=== PATIENT | female | born 1995 | race African-American/Black ===

== ENCOUNTER 2018-12-30 22:12 | Emergency (ER) | payer SELFPAY ==
[2018-12-31 00:36] LABS: #Lymphocytes 0.6 thou/uL (1.20-3.40); #Monocytes 0.3 thou/uL (0.11-0.59); #Neutrophils 15.4 thou/uL (1.40-6.50); %Basophils 0.1 % (0.0-1.0); %Eosinophils 0.1 % (0.0-10.0); %Lymphocytes 3.8 % (21.0-51.0); %Monocytes 1.7 % (0.0-10.0); %Neutrophils 94.3 % (42.0-75.0); Mean Corpuscular HGB CONC 33.9 g/dL (32.0-36.0); Mean Corpuscular Hemoglobin 32.3 pg (27.0-31.0); Mean Corpuscular Volume 95.2 fL (78.0-98.0); Mean Platelet Volume 7.9 fL (7.4-10.4); Platelet Count 228 thou/uL (130-400); RBC Distribution Width 12.1 % (11.5-14.5); Red Blood Cell (RBC) Count 4.02 mill/uL (4.20-5.40); White Blood Cell (WBC) Count 16.4 thou/uL (4.8-10.8)
[2018-12-31 00:57] LABS: ALT (SGPT) 13 U/L (8-55); AST (SGOT) 22 U/L (5-34); Albumin 3.9 g/dL (3.5-5.0); Alkaline Phosphatase 60 U/L (40-150); Anion Gap 14 mmol/L (10-20); BUN (Urea Nitrogen) 11 mg/dL (7.0-18.7); Bilirubin, Total 0.5 mg/dL (0.2-1.2); Calc. Creatinine Clearance 0 mL/min (70-130); Carbon Dioxide 17 mmol/L (22-29); Chloride 110 mmol/L (98-107); Estimated GFR-MDRD Greater than 90; Globulin 2.7 g/dL (2.4-3.5); Glucose 141 mg/dL (70-105); Potassium 3.4 mmol/L (3.5-5.1); Protein, Total 6.6 g/dL (6.0-8.3); Sodium 138 mmol/L (136-145)
[2018-12-31] MEDS ORDERED: Ondansetron PF 4 MG/2 ML Vial ONE (01:09)
[2018-12-31] MEDS ORDERED: Morphine 4 MG/ML VIAL ONE (02:00)
[2018-12-31] MEDS ORDERED: Ketorolac Tromethamine 30 MG/ML VIAL ONE (02:00)
[2018-12-31 03:12] LABS: Pregnancy Test - Urine (BHCG) Negative (Negative); Pregu Control Background? CLEAR/WHITE (CLR/WHITE); Pregu Control Bar Appear? YES (CONTROL BAR); Specific Gravity 1.026 (1.002-1.036)
[2018-12-31 03:13] LABS: Bilirubin Negative (Negative); Blood, Urine Moderate (Negative); Clarity CLOUDY (Clear); Glucose, Urine (Dipstick) 100 mg/dL (Negative); Leukocyte Negative (Negative); Nitrite Negative (Negative); Protein, Urine (Dipstick) 100 mg/dL (Neg-Trace); Specific Gravity, Urine 1.026 (1.002-1.036); pH, Urine 7.5 (5.0-9.0)
[2018-12-31 03:15] LABS: Bacteria/HPF 1+ HPF (None Seen); Pathc Cast-AUWi Flag 1.63 (0-2.49); RBC/HPF 0-3 HPF (0-3); Squamous Epithelial 0-3 HPF (0-3); WBC/HPF 21-50 HPF (0-3)
[2018-12-31 03:33] LABS: Hyaline Casts/LPF 0-3 HYALINE CAST LPF (0-3 Hyaline)
--- NOTE | 2018-12-31 07:09 | ULT ---
ULTRASOUND PELVIS WITH DOPPLER COLORFLOW IMAGING: TRANSABDOMINAL IMAGING PERFORMED: INDICATIONS: Pelvic pain. Clinical concern for torsion of the ovaries. FINDINGS: The uterus is of normal volume, although the endometrium is not reliably depicted on the basis of thi s exam. Doppler evaluation is performed, which reveals flow to each ovary. Dominant cyst of the lef t ovary measures slightly greater than 2 cm. No free pelvic fluid. Within the partially distended u rinary bladder, there are low level echoes that may relate to debris. IMPRESSION: 1. Doppler flow is elicited to each ovary with vascular waveforms. 2. No free pelvic fluid. 3. Incomplete visualization of the endometrium for comment. POS: [facility]
--- NOTE | 2018-12-31 09:09 | CT ---
PRELIMINARY REPORT/[facility]/EMERGENTY AFTER-HOURS PROCEDURE CT Abdomen and Pelvis With Contrast EXAM DATE/TIME: 12/31/2018 2:47 AM CLINICAL HISTORY: 23 years old, female; Pain; Abdominal pain; Localized; Lower; Patient HX: [id number] presents to ed C/O n/v/ d, onset last night. PT reports one episode of diarrhea and about 7-8 episodes of vomiting. PT also r eports fever of 100.6 and lower abdominal pain. PT reports sick contacts at home. TECHNIQUE: Imaging protocol: Axial computed tomography images of the abdomen and pelvis with intravenous contras t. Coronal reformatted images were created and reviewed. COMPARISON: No relevant prior studies available. FINDINGS: Lower thorax: No acute findings. ABDOMEN: Liver: Normal. No mass. Gallbladder and bile ducts: Normal. No calcified stones. No ductal dilation. Pancreas: Normal. No ductal dilation. Spleen: Normal. No splenomegaly. Adrenals: Normal. No mass. Kidneys and ureters: Subcentimeter low-attenuation lesion in the left kidney is too small to further characterize on this 5 mm slice thickness study, most likely a cyst. Kidneys are otherwise unremarkab le. Stomach and bowel: No bowel wall thickening or intestinal obstruction. Appendix: Normal appendix. PELVIS: Bladder: Unremarkable as visualized. Reproductive: 1.9 cm dominant follicle/cyst of the left ovary. ABDOMEN and PELVIS: Intraperitoneal space: Physiologic amount of free fluid in the pelvis. Bones/joints: No acute fracture. No dislocation. Soft tissues: Unremarkable. Vasculature: Normal. No abdominal aortic aneurysm. Lymph nodes: Normal. No enlarged lymph nodes. IMPRESSION: 1.9 cm dominant follicle/cyst of the left ovary. Thank you for allowing us to participate in the care of your patient. Dictated and Authenticated by: Amos Smart MD 12/31/2018 4:00 AM Central Time ([place] & [place]) FINAL REPORT EMERGENCY AFTER HOURS CT ABDOMEN AND PELVIS WITH CONTRAST: Date: 12/31/18 FINDINGS/IMPRESSION: I agree with the findings and impression given in the preliminary report per [facility] physician. 1. No evidence of acute intra-abdominal/pelvic abnormality. 2. Left renal cyst. POS: [facility]
[2018-12-31] MEDS ORDERED: ISOVUE-370 76%-LOCM 1 ML ONE (13:41)
== END 2018-12-31 04:21 | disposition home or self-care (01) ==
LOC: ERS 22:12
DX: N30.90 Cystitis, unspecified without hematuria (principal); R10.9 Unspecified abdominal pain
CPT/HCPCS: 36415; 74177; 76856; 80053; 81003; 81015; 81025; 83690; 85025; 87804; 93976; 96361; 96372; 96374; 96375; J0500; J1885; J2270; J2405; Q9966

== ENCOUNTER 2019-03-30 05:52 | Emergency (ER) | payer SELFPAY ==
[2019-03-30] MEDS ORDERED: Morphine 4 MG/ML VIAL ONE (06:14)
[2019-03-30] MEDS ORDERED: Ondansetron PF 4 MG/2 ML Vial ONE (06:14)
[2019-03-30 06:26] LABS: Hemoglobin 11.6 g/dL (12.0-16.0); Mean Corpuscular HGB CONC 34.5 g/dL (32.0-36.0); Mean Corpuscular Hemoglobin 32.9 pg (27.0-31.0); Mean Corpuscular Volume 95.6 fL (78.0-98.0); Mean Platelet Volume 7.9 fL (7.4-10.4); Platelet Count 242 thou/uL (130-400); RBC Distribution Width 12.5 % (11.5-14.5); Red Blood Cell (RBC) Count 3.51 mill/uL (4.20-5.40); White Blood Cell (WBC) Count 10.2 thou/uL (4.8-10.8)
[2019-03-30 06:42] LABS: Band 3 % (5-11); Lymphocytes 9 % (21-51); MDiff Complete? YES; Monocytes 2 % (0-10); Neutrophil 86 % (42-75)
[2019-03-30 06:50] LABS: ALT (SGPT) 14 U/L (8-55); AST (SGOT) 24 U/L (5-34); Albumin 3.9 g/dL (3.5-5.0); Alkaline Phosphatase 58 U/L (40-150); Anion Gap 15 mmol/L (10-20); BUN (Urea Nitrogen) 8 mg/dL (7.0-18.7); Bilirubin, Total 0.5 mg/dL (0.2-1.2); Calc. Creatinine Clearance 0 mL/min (70-130); Calcium 9.6 mg/dL (7.8-10.44); Carbon Dioxide 17 mmol/L (22-29); Chloride 112 mmol/L (98-107); Estimated GFR-MDRD Greater than 90; Globulin 2.4 g/dL (2.4-3.5); Glucose 123 mg/dL (70-105); Lipase 18 U/L (8-78); Potassium 3.3 mmol/L (3.5-5.1); Protein, Total 6.3 g/dL (6.0-8.3); Sodium 141 mmol/L (136-145)
[2019-03-30] MEDS ORDERED: Ketorolac Tromethamine 30 MG/ML VIAL ONE (06:54)
[2019-03-30 07:00] LABS: Bilirubin Negative (Negative); Blood, Urine Moderate (Negative); Clarity CLEAR (Clear); Glucose, Urine (Dipstick) Negative (Negative); Leukocyte Negative (Negative); Nitrite Negative (Negative); Protein, Urine (Dipstick) Trace mg/dL (Neg-Trace); Specific Gravity, Urine 1.017 (1.002-1.036); Urobilinogen 0.2 mg/dL (0.2-1.0); pH, Urine 8.5 (5.0-9.0)
[2019-03-30 07:01] LABS: Bacteria/HPF None Seen HPF (None Seen); Hyaline Casts/LPF 0-3 HYALINE CAST LPF (0-3 Hyaline); RBC/HPF 0-3 HPF (0-3)
[2019-03-30 07:04] LABS: Pregnancy Test - Urine (BHCG) Negative (Negative); Pregu Control Background? CLEAR/WHITE (CLR/WHITE); Pregu Control Bar Appear? YES (CONTROL BAR); Specific Gravity 1.017 (1.002-1.036)
[2019-03-30 07:13] LABS: Renal Epithelial 0-3 HPF (0-3); Transitional Epithelial 0-3 HPF (0-3)
--- NOTE | 2019-03-30 07:50 | ULT ---
EXAM: Transabdominal and transvaginal pelvic ultrasound with Doppler PROVIDED CLINICAL HISTORY: Pelvic pain COMPARISON: 12/31/2018 FINDINGS: The uterus measures approximately 7.2 x 3.1 x 5 cm and demonstrates a normal sonographic appearance. Uterine endometrial thickness is 5 mm. Right ovary measures approximately 3.4 x 2.2 cm and demonstrates a normal sonographic appearance. Left ovary measures approximately 3.8 x 2.6 cm demonstrates a normal sonographic appearance. Grayscale and color Doppler sonography with spectral analysis of the ovarian waveforms demonstrates n ormal flow bilaterally. Free pelvic fluid is noted, which may be physiologic. IMPRESSION: Free pelvic fluid. Otherwise unremarkable pelvic ultrasound.
== END 2019-03-30 08:35 | disposition home or self-care (01) ==
LOC: ERS 05:52
DX: N92.1 Excessive and frequent menstruation with irregular cycle (principal); F41.9 Anxiety disorder, unspecified
CPT/HCPCS: 76856; 80053; 81003; 81015; 81025; 83690; 85025; 93976; 96361; 96374; 96375; J1885; J2270; J2405

== ENCOUNTER 2021-09-08 18:51 | Emergency (ER) | payer OTHER, SELFPAY ==
[2021-09-08] MEDS ORDERED: Acetaminophen 500 MG TAB ONE (19:11)
== END 2021-09-08 21:00 | disposition home or self-care (01) ==
LOC: ERS 18:51
DX: S43.52XA Sprain of left acromioclavicular joint, initial encounter (principal); S16.1XXA Strain of muscle, fascia and tendon at neck level, initial encounter; S80.01XA Contusion of right knee, initial encounter; V49.49XA Driver injured in collision with other motor vehicles in traffic accident, initial encounter
CPT/HCPCS: 71045; 72125; 93005; G0390

== ENCOUNTER 2022-09-13 12:08 | Emergency (ER) | payer SELFPAY ==
[2022-09-13] MEDS ORDERED: Boostrix 0.5 ML (Tdap) VIAL (>/=7 yrs of age) ONE (14:32)
== END 2022-09-13 14:42 | disposition home or self-care (01) ==
LOC: ERS 12:08
DX: S61.012A Laceration without foreign body of left thumb without damage to nail, initial encounter (principal); W26.0XXA Contact with knife, initial encounter; Z23 Encounter for immunization
CPT/HCPCS: 90471; 90715

== ENCOUNTER 2024-12-11 13:55 | Emergency (ER) | payer SELFPAY ==
[2024-12-11] MEDS ORDERED: Ketorolac Tromethamine 30 MG (1 mL) VIAL ONE (14:24)
[2024-12-11] MEDS ORDERED: Droperidol 5 MG/2 ML VIAL ONE (14:29)
[2024-12-11 15:51] LABS: Bilirubin Negative (Negative); Blood, Urine Small (Negative); Glucose, Urine (Dipstick) Negative (Negative); Ketone, Urine Negative (Negative); Leukocyte Negative (Negative); Nitrite Negative (Negative); Protein, Urine (Dipstick) Negative (Neg-Trace); Urobilinogen 0.2 mg/dL (Less than 2); pH, Urine 8.5 (5.0-9.0)
[2024-12-11 15:54] LABS: Bacteria/HPF None Seen HPF (None Seen); CAUTI Indications for Culture Dysuria,urgency,freq; Clarity Turbid (Clear); Squamous Epithelial 0-3 HPF (0-3); WBC/HPF None Seen HPF (0-3)
[2024-12-11 15:57] LABS: Urine Culture Reflex No No
[2024-12-11 16:06] LABS: #Basophils Less than 0.03 10x3/uL (0.0-0.2); #Eosinophils Less than 0.03 10x3/uL (0.0-0.7); %Basophils 0.2 % (0.0-1.0); %Eosinophils 0.4 % (0.0-10.0); %Lymphocytes 13.5 % (21.0-51.0); %Monocytes 6.8 % (0.0-10.0); %Neutrophils 78.9 % (42.0-75.0); Hematocrit 35.6 % (36.0-47.0); Hemoglobin 11.9 g/dL (12.0-16.0); Mean Corpuscular HGB CONC 33.4 g/dL (32.0-36.0); Mean Corpuscular Hemoglobin 33.1 pg (27.0-31.0); Mean Corpuscular Volume 99.2 fL (78.0-98.0); Mean Platelet Volume 9.9 fL (7.4-10.4); Platelet Count 180 10x3/uL (130-400); RBC Distribution Width 13.8 % (11.5-14.5); Red Blood Cell (RBC) Count 3.59 mill/uL (4.20-5.40)
[2024-12-11 16:20] LABS: BHCG - Serum Negative (NEGATIVE); Pregs Control Background? CLEAR/WHITE (CLR/WHITE); Pregs Control Bar Appear? YES (CONTROL BAR)
[2024-12-11 16:22] LABS: ALT (SGPT) 11 U/L (Less than 34); AST (SGOT) 26 U/L (11-34); Albumin 4.1 g/dL (3.1-4.5); Alkaline Phosphatase 52 U/L (40-110); Anion Gap 10 mmol/L (10-20); BUN (Urea Nitrogen) 11 mg/dL (7.0-18.7); Bilirubin, Total 0.4 mg/dL (0.3-1.2); Calc. Creatinine Clearance 0 mL/min (70-130); Calcium 8.9 mg/dL (7.8-10.44); Carbon Dioxide 23 mmol/L (22-29); Chloride 111 mmol/L (98-107); Estimated GFR 121; Globulin 3.4 g/dL (2.4-3.5); Glucose 91 mg/dL (70-105); Potassium 3.2 mmol/L (3.5-5.1); Protein, Total 7.5 g/dL (6.0-8.3); Sodium 141 mmol/L (136-145)
== END 2024-12-11 17:34 | disposition home or self-care (01) ==
LOC: ERS 13:55
DX: R10.2 Pelvic and perineal pain (principal)
CPT/HCPCS: 36415; 80053; 81001; 84703; 85025; 96361; 96374; 96375; J1790; J1885

== ENCOUNTER 2025-09-15 14:10 | Emergency (ER) | payer OTHER ==
[2025-09-15] MEDS ORDERED: Albuterol 2.5 MG (0.5 mL) NEB ONE (16:21)
[2025-09-15] MEDS ORDERED: predniSONE 20 MG TAB ONE (16:22)
== END 2025-09-15 17:14 | disposition home or self-care (01) ==
LOC: ERS 14:10
DX: J11.1 Influenza due to unidentified influenza virus with other respiratory manifestations (principal); F17.210 Nicotine dependence, cigarettes, uncomplicated
CPT/HCPCS: 71046; 87428; J7512; J7611; Q0162